=== PATIENT | female | born 1995 | race Caucasian/White ===

== ENCOUNTER 2018-09-16 11:37 | Emergency (ER) | payer MEDICAID ==
[~2018-09-16] VITALS: Ht 157.5 cm; Wt 59.1 kg
[2018-09-16 12:54] VITALS: BP 118/72
== END 2018-09-16 12:54 | disposition home or self-care (01) ==
LOC: ED 11:37
DX: S90.111A Contusion of right great toe without damage to nail, initial encounter (principal); F31.9 Bipolar disorder, unspecified; F12.90 Cannabis use, unspecified, uncomplicated; Z91.040 Latex allergy status; W20.8XXA Other cause of strike by thrown, projected or falling object, initial encounter; Y92.009 Unspecified place in unspecified non-institutional (private) residence as the place of occurrence of the external cause

== ENCOUNTER 2018-09-19 06:53 | Emergency (ER) | payer MEDICAID ==
[~2018-09-19] VITALS: Ht 157.5 cm; Wt 56.8 kg
[2018-09-19 07:39] LABS: EOS % 0.4 % (1.0-5.0); HEMATOCRIT 41.3 % (37.0-47.0); LYMPH# 2.4 (1.50-4.00); MEAN CELL VOLUME 86 fl (78-100); MEAN CORPUSCULAR HEMOGLOBIN 29 pg (27-31); MEAN CORPUSCULAR HGB CONC 34 g/dL (33-37); MONO # 0.7 (0.20-0.80); NEU # 5.5 (1.40-6.50); PLATELET COUNT 355 K/mm3 (130-400); RED BLOOD COUNT 4.79 M/mm3 (4.10-5.30); RED CELL DISTRIBUTION WIDTH 12.9 % (11.5-14.5); WHITE BLOOD COUNT 8.6 K/mm3 (4.8-10.8)
[2018-09-19 08:09] LABS: ALBUMIN 4.3 g/dL (3.5-5.0)
[2018-09-19 08:11] LABS: CALCIUM 9.8 mg/dL (8.3-10.5)
[2018-09-19 08:12] LABS: TOTAL PROTEIN 7.6 g/dL (6.4-8.3)
[2018-09-19 08:14] LABS: TOTAL BILIRUBIN 0.6 mg/dL (0.2-1.2)
[2018-09-19 08:29] LABS: POTASSIUM 2.9 mmol/L (3.5-5.1)
[2018-09-19 08:30] LABS: URINE APPEARANCE HAZY; URINE COLOR YELLOW
[2018-09-19 08:31] LABS: URINE BILIRUBIN NEGATIVE (NEGATIVE); URINE BLOOD 250 ery/uL (NEGATIVE); URINE GLUCOSE NEGATIVE (NEGATIVE); URINE KETONE 2+ (NEGATIVE); URINE LEUKOCYTE ESTERASE NEGATIVE (NEGATIVE); URINE MUCUS PRESENT (NOT PRESENT); URINE NITRATE NEGATIVE (NEGATIVE); URINE PROTEIN(semi-quant) TRACE mg/dL (NEGATIVE); URINE UROBILINOGEN NORMAL (NORMAL)
[2018-09-19] MEDS ORDERED: PERCOCET 325 MG1 TA2 PO (11:16)
[2018-09-19] MEDS ORDERED: ONDANSETRON ODT8 MG PO (11:29)
[2018-09-19 11:38] LABS: POTASSIUM 4.2 mmol/L (3.5-5.1)
[2018-09-19 11:39] LABS: CALCIUM 8.4 mg/dL (8.3-10.5)
[2018-09-19] MEDS ORDERED: FLOMAX0.4 MG PO (12:00)
[2018-09-19] MEDS ORDERED: FLAGYL500 M1 PO ×2 (13:33)
[2018-09-19] MEDS ORDERED: CIPRO500 M1 PO (13:33)
[2018-09-19 16:32] VITALS: BP 96/79
== END 2018-09-19 15:15 | disposition home or self-care (01) ==
LOC: ED 06:53
PROVIDERS: Nurse Practitioner Family
DX: N13.2 Hydronephrosis with renal and ureteral calculous obstruction (principal); K81.9 Cholecystitis, unspecified; K75.9 Inflammatory liver disease, unspecified; F12.90 Cannabis use, unspecified, uncomplicated; F19.10 Other psychoactive substance abuse, uncomplicated
CPT/HCPCS: J0744; J1885; J2270; J2405; J3480; J7030; Q9967

== ENCOUNTER → 2018-11-14 | Outpatient (CLI) | payer MEDICAID ==
[~2018-11-14] MED LIST: CIPRO500 M1 PO; FLAGYL500 M1 PO; FLOMAX0.4 MG PO; ONDANSETRON ODT8 MG PO; PERCOCET 325 MG1 TA2 PO
== END ==
LOC: RAD 09:34
DX: N20.0 Calculus of kidney (principal)

== ENCOUNTER → 2018-11-18 | Outpatient (CLI) | payer MEDICAID ==
[2018-11-18 16:36] LABS: PH-URINE 5.5 (5.0 - 8.0); URINE APPEARANCE CLEAR; URINE BILIRUBIN NEGATIVE (NEGATIVE); URINE BLOOD NEGATIVE (NEGATIVE); URINE COLOR YELLOW; URINE GLUCOSE NEGATIVE (NEGATIVE); URINE KETONE NEGATIVE (NEGATIVE); URINE LEUKOCYTE ESTERASE TRACE (NEGATIVE); URINE NITRATE NEGATIVE (NEGATIVE); URINE PROTEIN(semi-quant) TRACE mg/dL (NEGATIVE); URINE UROBILINOGEN NORMAL (NORMAL)
== END ==
LOC: LAB 15:37
PROVIDERS: Urology
DX: N20.1 Calculus of ureter (principal)

== ENCOUNTER 2020-08-24 17:36 | Emergency (ER) | payer OTHER ==
[2020-08-24] MEDS ORDERED: PREDNISONE20 M1 PO (19:53)
[2020-08-24] MEDS ORDERED: PERCOCET 325 MG1 TA2 PO (20:12)
[2020-08-24 20:18] VITALS: BP 94/42
== END 2020-08-24 20:18 | disposition home or self-care (01) ==
LOC: ED 17:36
DX: M54.42 Lumbago with sciatica, left side (principal); M54.41 Lumbago with sciatica, right side

== ENCOUNTER → 2020-09-15 | Outpatient (CLI) | payer OTHER ==
[~2020-09-15] MED LIST changes: +PREDNISONE20 M1 PO
== END ==
LOC: LAB 15:00
DX: U07.1 COVID-19 (principal)